=== PATIENT | female | born 1965 | race Caucasian/White ===

== ENCOUNTER → 2019-01-14 13:42 | Outpatient (CLI) | payer BC, SELFPAY ==
--- NOTE | 2019-01-14 13:50 | XR_ITS ---
XR foot RT min 3V HISTORY: ITS.REASON: RT GREAT TOE PAIN ORDERING PHYSICIAN: Gonzalo Holguin MD PATIENT AGE: 53 years COMPARISON: None FINDINGS: No fracture or dislocation. No lytic or blastic change. There is normal mineralization.. The joint spaces are well-preserved. No significant degenerative/arthritic changes. No erosive changes evident. IMPRESSION: Negative, no acute finding
== END ==
PROVIDERS: PCP Family Medicine; Visit Provider Family Medicine
DX: M79.674 Pain in right toe(s) (principal)
CPT/HCPCS: 73630

== ENCOUNTER 2020-08-27 06:53 | Emergency (ER) | payer BC, SELFPAY ==
[2020-08-27 06:54] VITALS: BP 138/82; PULSE 58; RESP 20; TEMP 36.8; O2SAT 98; BMI 22.4
--- NOTE | 2020-08-27 07:13 | CT_ITS ---
PROCEDURE: CT ABDOMEN PELVIS WO CON CLINICAL INDICATION: r/o stone Left flank pain COMPARISON: No exams were available for comparison TECHNIQUE: Axial images obtained with sagittal and coronal reformats. All CT scans at the facility use one or more dose reduction, viz: automated exposure control, ma/kV adjustment per patient size (including targeted exams where dose is matched to indication, i.e. head), or iterative reconstruction technique. FINDINGS: There are atelectatic or fibrotic changes in the right middle lobe and left lower lobe posteriorly. Left hemidiaphragm is elevated. There has been a prior cholecystectomy. The liver, spleen, adrenal glands, and pancreas have an unremarkable appearance. There are few scattered small mesenteric lymph nodes. The right kidney has an unremarkable appearance. There is minimal ectasia of the left renal pelvis and ureter. A definite obstructing stone however is not identified. No stones are evident within the urinary bladder. No intestinal obstruction or free air. No evidence of appendicitis. There is mild thickening versus nondistention of the descending colon. There are few scattered diverticula but no evidence of diverticulitis. No pelvic mass or abnormal fluid collection. No acute bony findings. IMPRESSION: 1. Mild ectasia of the left renal collecting system. A definite ureteral stone or urinary bladder stone is not identified. This could be related to recently passed stone or urinary tract infection. 2. Mild thickening of the descending colon which could be related to nondistention or mild colitis. Dictated by: Jefe Clements MD 08/27/2020 07:47 Jefe Clements MD in [place] 08/27/2020 07:47
[2020-08-27 07:20] LABS: Microscopic, Urine URINE MICROSCOPIC (MICROSCOPIC)
[2020-08-27 07:24] VITALS: BP 112/73; PULSE 68; RESP 18; O2SAT 97
[2020-08-27 07:24] LABS: Chloride 108 mmol/L (98-107); Sodium 142 mmol/L (136-145)
[2020-08-27 07:25] LABS: Potassium 3.9 mmoL/L (3.5-5.1)
[2020-08-27 07:27] LABS: Alanine Aminotransferase 36 U/L (12-78); Albumin Level 4.6 g/dl (3.5-5.0); Albumin/Globulin Ratio 1.6 (1.1-1.8); Alkaline Phosphatase 86 U/L (38-126); Anion Gap 10.9 mEq/L (5-15); Aspartate Amino Transferase 39 U/L (14-36); Bilirubin,Total 0.3 mg/dl (0.2-1.3); Blood Urea Nitrogen 22 mg/dl (7-17); Carbon Dioxide 27 mmol/L (22.0-30.0); Creatinine Clearance Estimated 59 mL/min (50-200); Estimated Glomerular Filt Rate 65 ml/min (>60); GFR (African American) 78 ML/MIN (>60); Globulin 2.8 g/dL (1.3-3.2); Total Protein,Serum 7.4 g/dl (6.3-8.2)
[2020-08-27 07:28] LABS: Calcium 9.9 mg/dl (8.4-10.2); Glucose 125 mg/dl (74-100)
[2020-08-27 07:31] LABS: Basophils % 0.5 % (0.1-2.0); Eosinophils # 0.1 K/mm3 (0.0-0.4); Eosinophils % 1.9 % (0.1-12.0); Hematocrit 43.9 % (37.0-47.0); Hemoglobin 14.7 g/dL (12.2-16.2); Lymphocytes # 2.5 K/mm3 (0.7-4.5); Lymphocytes % 32.5 % (10-50); Mean Corpuscular HGB Conc 33.5 g/dL (31.8-35.4); Mean Corpuscular Hemoglobin 33.5 pg (27.0-31.2); Mean Platelet Volume 7.5 fl (7.4-10.4); Monocytes # 0.5 K/mm3 (0.1-1.0); Neutrophils # 4.4 K/mm3 (1.8-7.8); Neutrophils % 58.2 % (37.0-80.0); Platelet Count 308 K/mm3 (142-424); Red Blood Count 4.39 M/mm3 (4.20-5.40); White Blood Count 7.6 K/mm3 (4.8-10.8)
[2020-08-27 07:32] LABS: Appearance,Urine CLOUDY (Clear); Bilirubin,Urine Negative (Negative); Blood, Urine 3+ (Negative); Color,Urine YELLOW (Yellow); Glucose,Urine (UA) Negative (Negative); Ketones,Urine Negative (Negative); Leukocyte Esterase,Urine Negative (Negative); Nitrate,Urine Negative (Negative); PH,Urine 6.5 (5.0-8.5); Protein,Urine TRACE (Negative); Urobilinogen,Urine 0.2 EU/dl (0.2)
[2020-08-27 07:37] VITALS: BP 112/73
--- NOTE | 2020-08-27 08:00 | [facility].EDGENADL ---
ED Disposition Clinical Impression: Renal colic on left side Hematuria Qualifiers: Hematuria type: unspecified type Qualified Code(s): R31.9 - Hematuria, unspecified Disposition: Home, Self-Care Condition on Discharge: Good Instructions: DI for Hematuria Additional Instructions: fluids and see urology and pcp for follow up Prescriptions: Ketorolac Tromethamine [Toradol 10mg tablet] 10 mg PO Q6H 3 Days #12 tab Prescription Printed Referrals: Gonzalo Holguin MD [Primary Care Provider] - Steven Gtz MD [Staff Physician] - - Critical Care Critical Care Time: No Attestation: On 08/27/20, the high probability of a clinically significant, sudden or life threatening deterioration of the following system(s) required my full and direct attention, intervention and personal management. The time I documented below is in addition to time spent performing reported procedures but includes the following listed in this critical care notation. Medical Decision Making - Medical Records Medical records reviewed: Yes: I reviewed the patient's medical records. - Tommy Inquiry Pt receiving controlled substance: No Vital Signs: 08/27/20 06:54 08/27/20 07:24 08/27/20 07:37 Temperature 98.2 F Temperature Source Oral Pulse Rate [Radial] 58 L 68 Respiratory Rate 20 18 Blood Pressure [Right Arm] 138/82 112/73 112/73 Blood Pressure Mean [Right Arm] 100 86 86 Blood Pressure Source [Right Arm] Automatic Cuff Blood Pressure Position [Right Arm] Sitting Sitting Sitting 02 Sat by Pulse Oximetry 98 97 Oxygen Delivery Method Room Air Room Air - Lab Data Lab results reviewed: Yes: I reviewed the patient's lab results. Lab Results 08/27/20 07:03: Urine Color Yellow, Urine Appearance Cloudy, Urine pH 6.5, Ur Specific [place] 1.020, Urine Protein Trace, Urine Glucose (UA) Negative, Urine Ketones Negative, Urine Blood 3+, Urine Nitrate Negative, Urine Bilirubin Negative, Urine Urobilinogen 0.2, Ur Leukocyte Esterase Negative, Urine RBC 10-20, Urine WBC 3-5, Ur Squamous Epith Cells 3-5 08/27/20 07:10: WBC 7.6, RBC 4.39, Hgb 14.7, Hct 43.9, MCV 100.0 H, MCH 33.5 H, MCHC 33.5, RDW 13.0, Plt Count 308, MPV 7.5, Neut % (Auto) 58.2, Lymph % (Auto) 32.5, [place] % (Auto) 7.0, Eos % (Auto) 1.9, Baso % (Auto) 0.5, Neut # (Auto) 4.4, Lymph # (Auto) 2.5, [place] # (Auto) 0.5, Eos # (Auto) 0.1, Baso # (Auto) 0.0 08/27/20 07:10: Sodium 142, Potassium 3.9, Chloride 108 H, Carbon Dioxide 27, Anion Gap 10.9, BUN 22 H, Creatinine 0.90, Estimated Creat Clear 59, Estimated GFR 65, Est GFR ( Amer) 78, Glucose 125 H, Calcium 9.9, Total Bilirubin 0.3, AST 39 H, ALT 36, Alkaline Phosphatase 86, Total Protein 7.4, Albumin 4.6, Globulin 2.8, Albumin/Globulin Ratio 1.6 Result diagrams: 08/27/20 07:10 08/27/20 07:10 Orders (Tests/Meds): ED MEDICATIONS Generic Name Dose Route Start Last Admin Trade Name Freq PRN Reason Stop Dose Admin Sodium Chloride 1,000 mls @ 999 mls/hr 08/27/20 07:15 08/27/20 07:16 Sod Chlor 0.9% 1000ml Bag IV 08/27/20 08:15 999 mls/hr .Q1H1M OPAL Administration Discontinued Medications Generic Name Dose Route Start Last Admin Trade Name Freq PRN Reason Stop Dose Admin Ketorolac Tromethamine 30 mg 08/27/20 07:12 08/27/20 07:10 Ketorolac 30mg/Ml Vial IV 08/27/20 07:13 30 mg ONCE ONE Administration Ondansetron HCl 4 mg 08/27/20 07:12 08/27/20 07:10 Ondansetron 4mg/2ml Vial IV 08/27/20 07:13 4 mg ONCE ONE Administration - CT Data CT Scan: Abdomen, Pelvis Time Received: 08:[address] Reviewed: Yes: I have viewed the radiologist's interpretation Preliminary Findings: Abnormal (see report ) General Adult HPI - General Chief complaint: PAIN Stated complaint: Pain left lower back,N/V Time Seen by Provider: 08/27/20 07:15 Mode of Arrival: Ambulatory Source of Information: Patient, Spouse, Medical Record Limitations: No Limitations Description of Symptoms (Recalle
[2020-08-27 08:14] VITALS: BP 112/73; PULSE 78; RESP 16; TEMP 36.6; O2SAT 98
== END 2020-08-27 08:35 | disposition home or self-care (01) ==
PROVIDERS: Emergency Provider Emergency Medicine; PCP Family Medicine
DX: N23 Unspecified renal colic (principal)
CPT/HCPCS: 74176; 80053; 81001; 85025; 96365; 96375; 99283; J2405

== ENCOUNTER → 2021-02-02 14:04 | Outpatient (CLI) | payer BC, SELFPAY ==
--- NOTE | 2021-02-02 14:09 | XR_ITS ---
PROCEDURE: XR HIP RT 2-3V W/PELVIS CLINICAL INDICATION: RT HIP PAIN COMPARISON: No exams were available for comparison FINDINGS: There are minimal osteoarthritic changes of the right hip with mild osteosclerosis the acetabular roof and minimal spurring along the femoral head. No fracture or dislocation. No lytic or blastic change. IMPRESSION: Minimal osteoarthritis of the right hip Dictated by: Jefe Clements MD 02/02/2021 15:26 Jefe Clements MD in [place] 02/02/2021 15:26
--- NOTE | 2021-02-02 14:09 | XR_ITS ---
PROCEDURE: XR LUMBAR SPINE MIN 4V CLINICAL INDICATION: RT HIP PAIN COMPARISON: No exams were available for comparison FINDINGS: Alignment: Normal alignment. Bony structures: No fracture or dislocation. No lytic or blastic change. Disc spaces: No significant degenerative change. The disc spaces are preserved. Additional findings: Surgical clips in the right upper quadrant and right mid abdominal region. IMPRESSION: Negative lumbar spine Dictated by: Jefe Clements MD 02/02/2021 15:25 Jefe Clements MD in [place] 02/02/2021 15:25
== END ==
PROVIDERS: PCP Family Medicine; Visit Provider Family Medicine
DX: M25.551 Pain in right hip (principal); M54.5 Low back pain
CPT/HCPCS: 72110; 73502

== ENCOUNTER → 2021-05-13 12:50 | Outpatient (CLI) | payer BC, SELFPAY ==
--- NOTE | 2021-05-13 12:58 | MR_ITS ---
PROCEDURE: MR MR HIP RT W CON IR ARTHROGRAM HIP RT CLINICAL INDICATION: RIGHT HIP PAIN COMPARISON: MR MR HIP RT W CON from 05/13/2021 CR,RF IR ARTHROGRAM HIP RT from 05/13/2021 FINDINGS: IR ARTHROGRAM HIP RT: Following obtaining informed consent and time-out procedure under aseptic conditions and local anesthesia with 1 percent buffered lidocaine, and under fluoroscopic guidance with a 20 gauge needle a mixture of gadolinium, Isovue, lidocaine and normal saline was injected into the right hip joint.. Images were then obtained. The patient was then sent to the MRI suite where MR arthrogram images were obtained. Contrast flowed freely into the right hip joint space and capsule. No evidence of adhesive capsulitis. The hip joint is slightly narrowed suggesting minimal osteoarthritic change. MR arthrogram: There is slight narrowing of the hip joint space superiorly on both sides suggesting minimal osteoarthritic change. No fracture or dislocation. No evidence of avascular necrosis. No obvious labral tear. The acetabular cartilage is thin on both sides with some minimal subchondral cystic change in the lip of the acetabulum on both sides. The labrum is thinned but no obvious tear is apparent. There is some focal flattening of the femoral head anteriorly on the right. Etiology is indeterminate. This could be due to prior trauma or femoral acetabular impingement. The flattening is trough like in nature. IMPRESSION: 1. Mild osteoarthritic changes of both hips. 2. There is thinning of the labrum but no obvious tear is evident. 3. 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 Please correlate with clinical parameters. Posttraumatic changes also consideration. Dictated by: Jefe Clements MD 05/16/2021 08:48 Jefe Clements MD in [place] 05/16/2021 08:48
== END ==
PROVIDERS: PCP Family Medicine; Visit Provider Orthopaedic Surgery Adult Reconstructive Orthopaedic Surgery
DX: M25.551 Pain in right hip (principal)
CPT/HCPCS: 73525; 73722; A9576; Q9967

== ENCOUNTER → 2021-08-22 13:42 | Outpatient (CLI) | payer BC, SELFPAY ==
--- NOTE | 2021-08-22 14:04 | ECG_ITS ---
APPROVED REPORT Exam: Resting ECG HR:81 bpm ECG Measurements Heart Rate 81 AXES UT 138 P 53 QRSd 76 QRS 99 QT 364 T 19 QTc 422 Conclusion Normal sinus rhythm Rightward axis Low voltage QRS Borderline ECG Electronically signed by : Sandro Talavera MD 08/23/2021 21:05:12
[2021-08-22 14:58] LABS: Chloride 107 mmol/L (98-107); Potassium 4.4 mmoL/L (3.5-5.1); Sodium 139 mmol/L (136-145)
[2021-08-22 15:01] LABS: Blood Urea Nitrogen 15 mg/dl (7-17); Estimated Glomerular Filt Rate 74 ml/min (>60); GFR (African American) 89 ML/MIN (>60)
[2021-08-22 15:02] LABS: Anion Gap 12.4 mEq/L (5-15); Calcium 9.1 mg/dl (8.4-10.2); Carbon Dioxide 24 mmol/L (22.0-30.0); Glucose 82 mg/dl (74-100)
[2021-08-22 15:36] LABS: Basophils % 0.7 % (0.1-2.0); Eosinophils # 0.1 K/mm3 (0.0-0.4); Eosinophils % 1.7 % (0.1-12.0); Hematocrit 42.2 % (37.0-47.0); Hemoglobin 14.2 g/dL (12.2-16.2); Lymphocytes # 2.4 K/mm3 (0.7-4.5); Lymphocytes % 45.2 % (10-50); Mean Corpuscular HGB Conc 33.6 g/dL (31.8-35.4); Mean Corpuscular Hemoglobin 33.2 pg (27.0-31.2); Mean Corpuscular Volume 98.6 fl (81-99); Mean Platelet Volume 7.2 fl (7.4-10.4); Monocytes # 0.4 K/mm3 (0.1-1.0); Monocytes % 6.5 % (1.7-9.3); Neutrophils # 2.4 K/mm3 (1.8-7.8); Neutrophils % 45.9 % (37.0-80.0); Platelet Count 302 K/mm3 (142-424); Red Blood Count 4.28 M/mm3 (4.20-5.40); Red Cell Distribution Width 12.5 % (11.5-17.5); White Blood Count 5.3 K/mm3 (4.8-10.8)
== END ==
PROVIDERS: Visit Provider Family Medicine
DX: Z01.818 Encounter for other preprocedural examination (principal)
CPT/HCPCS: 36415; 80048; 85025; 93005

== ENCOUNTER → 2021-09-05 15:52 | Outpatient (CLI) | payer BC, SELFPAY ==
[2021-09-05 16:24] LABS: Adenovirus,PCR Not Detected (NotDetected); Bordetella Pertussis Not Detected (NotDetected); Chlamydophila Pneumoniae, PCR Not Detected (NotDetected); Coronavirus 19, PCR Not Detected (NotDetected); Coronavirus 229E Not Detected (NotDetected); Coronavirus NL63 Not Detected (NotDetected); Coronavirus OC43 Not Detected (NotDetected); Coronovirus HKU1,PCR Not Detected (NotDetected); Human Metapneumovirus Not Detected (NotDetected); Influenza A, PCR Not Detected (NotDetected); Influenza AH1, 2009 Not Detected (NotDetected); Influenza AH1, PCR Not Detected (NotDetected); Influenza AH3,PCR Not Detected (NotDetected); Influenza B, PCR Not Detected (NotDetected); Mycoplasma Pneumoniae, PCR Not Detected (NotDetected); Parainfluenza 1, PCR Not Detected (NotDetected); Parainfluenza 2, PCR Not Detected (NotDetected); Parainfluenza 3, PCR Not Detected (NotDetected); Parainfluenza 4, PCR Not Detected (NotDetected); Respiratory Syncytial Virus Not Detected (NotDetected); Rhinovirus/Enterovirus Not Detected (NotDetected)
[2021-09-05 16:29] LABS: Basophils # 0.1 K/mm3 (0-0.2); Basophils % 0.9 % (0.1-2.0); Eosinophils # 0.2 K/mm3 (0.0-0.4); Eosinophils % 2.2 % (0.1-12.0); Hematocrit 35.6 % (37.0-47.0); Hemoglobin 11.7 g/dL (12.2-16.2); Lymphocytes # 2.1 K/mm3 (0.7-4.5); Lymphocytes % 27.8 % (10-50); Mean Corpuscular HGB Conc 32.8 g/dL (31.8-35.4); Mean Corpuscular Hemoglobin 33.2 pg (27.0-31.2); Mean Corpuscular Volume 101.2 fl (81-99); Mean Platelet Volume 7.6 fl (7.4-10.4); Monocytes # 0.4 K/mm3 (0.1-1.0); Monocytes % 5.3 % (1.7-9.3); Neutrophils # 4.8 K/mm3 (1.8-7.8); Neutrophils % 63.9 % (37.0-80.0); Platelet Count 520 K/mm3 (142-424); Red Blood Count 3.51 M/mm3 (4.20-5.40); Red Cell Distribution Width 12.6 % (11.5-17.5); White Blood Count 7.6 K/mm3 (4.8-10.8)
[2021-09-05 16:40] LABS: Chloride 107 mmol/L (98-107); Sodium 138 mmol/L (136-145)
[2021-09-05 16:43] LABS: Alanine Aminotransferase 262 U/L (12-78); Albumin Level 3.9 g/dl (3.5-5.0); Albumin/Globulin Ratio 1.2 (1.1-1.8); Alkaline Phosphatase 164 U/L (38-126); Anion Gap 13.4 mEq/L (5-15); Aspartate Amino Transferase 105 U/L (14-36); Bilirubin,Total 0.3 mg/dl (0.2-1.3); Blood Urea Nitrogen 12 mg/dl (7-17); Carbon Dioxide 21 mmol/L (22.0-30.0); Estimated Glomerular Filt Rate 103 ml/min (>60); GFR (African American) 124 ML/MIN (>60); Globulin 3.2 g/dL (1.3-3.2); Potassium 3.4 mmoL/L (3.5-5.1); Total Protein,Serum 7.1 g/dl (6.3-8.2)
[2021-09-05 16:46] LABS: Glucose 132 mg/dl (74-100)
== END ==
PROVIDERS: PCP Family Medicine; Visit Provider Family Medicine
DX: Z20.822 Contact with and (suspected) exposure to COVID-19 (principal); R79.89 Other specified abnormal findings of blood chemistry
CPT/HCPCS: 36415; 80053; 85025; 87581; 87632; 87798; C9803; U0003; U0005

== ENCOUNTER 2023-12-03 07:50 | Outpatient (CLI) | payer BC, SELFPAY ==
--- NOTE | 2023-12-03 07:57 | US_ITS ---
FINAL REPORT CLINICAL HISTORY: FAMILY HISTORY:ABDOMIANL AORTIC ANEURYSM COMPARISON: None FINDINGS: Sonographic images were obtained of the abdominal aorta. The abdominal aorta measures up to 1.6 cm in greatest dimensions. The common iliac arteries are within normal limits. IMPRESSION: No evidence of aortic aneurysm. Reviewed, Interpreted and Dictated by Eloy Earl III, MD Transcribed by Shelly Jacob Authenticated and [facility]
== END 2023-12-03 23:59 ==
LOC: RAD 07:51
PROVIDERS: PCP Family Medicine; Visit Provider Family Medicine
DX: Z82.49 Family history of ischemic heart disease and other diseases of the circulatory system (principal)
CPT/HCPCS: 76770